=== PATIENT | male | born 1985 | race Two or more races ===

== ENCOUNTER 2023-03-21 16:40 | Emergency (ER) | payer OTHER ==
[~2023-03-21] VITALS: Ht 205.7 cm; Wt 94.3 kg
== END 2023-03-21 19:25 | disposition home or self-care (01) ==
LOC: ER 16:40
DX: S80.871A Other superficial bite, right lower leg, initial encounter (principal); W54.0XXA Bitten by dog, initial encounter; Y93.9 Activity, unspecified; Y92.89 Other specified places as the place of occurrence of the external cause; Y99.9 Unspecified external cause status